=== PATIENT | male | born 1985 | race Caucasian/White ===

== ENCOUNTER 2021-08-12 15:38 | Emergency (ER) | payer OTHER ==
[2021-08-12] MEDS ORDERED: CEPHALEXIN500 MG PO (16:09)
[2021-08-12] MEDS ORDERED: IBUPROFEN800 MG PO (16:09)
== END 2021-08-12 16:22 | disposition home or self-care (01) ==
LOC: ER1 15:38
DX: S02.5XXA Fracture of tooth (traumatic), initial encounter for closed fracture (principal); X58.XXXA Exposure to other specified factors, initial encounter
CPT/HCPCS: 96372; 99282; J1885